=== PATIENT | male | born 1995 | race Caucasian/White ===

== ENCOUNTER 2018-01-26 09:48 | Emergency (ER) | payer BC ==
[~2018-01-26] VITALS: Ht 177.8 cm; Wt 81.8 kg
[2018-01-26 09:52] VITALS: BP 131/63; PULSE 90; TEMP 98.6
== END 2018-01-26 10:30 | disposition home or self-care (01) ==
LOC: COL.ER 09:48
DX: S93.401A Sprain of unspecified ligament of right ankle, initial encounter (principal); X50.1XXA Overexertion from prolonged static or awkward postures, initial encounter; Y93.63 Activity, rugby

== ENCOUNTER 2019-09-02 18:43 | Emergency (ER) | payer BC ==
[~2019-09-02] VITALS: Ht 177.8 cm; Wt 84.1 kg
[2019-09-02 18:51] VITALS: BP 168/106; TEMP 98.5
[2019-09-02 19:40] LABS: COLLECTION METHOD CLEAN CATCH
[2019-09-02 19:50] LABS: BASO % 0.5 % (0.0-2.0); EOS # 0.2 (0.0-0.7); GRAN # 5.2 (1.4-6.5); GRAN % 67.5 % (42.2-75.2); HEMATOCRIT 45.8 % (42.0-52.0); HEMOGLOBIN 15.5 g/dl (13.5-18.0); LYMPH # 1.6 (1.2-3.4); LYMPH % 20.8 % (20.0-51.0); MEAN CELL VOLUME 88 fl (80.0-100.0); MEAN CORPUSCULAR HEMOGLOBIN 30 pg (27.0-31.0); MEAN CORPUSCULAR HGB CONC 34 g/dl (33.0-37.0); MEAN PLATELET VOLUME 11.4 fl (7.4-10.4); MONO # 0.6 (0.1-0.6); MONO % 8.1 % (1.7-9.3); PLATELET COUNT 237 K/mm3 (130-400); RED BLOOD COUNT 5.22 M/mm3 (4.20-5.60)
[2019-09-02 19:53] LABS: ALBUMIN 4.7 gm/dL (3.5-5.0); BILIRUBIN,TOTAL 0.5 mg/dL (0.0-1.0); CALCIUM 9.6 mg/dL (8.4-10.2); CREATININE, serum 1.12 (0.66-1.25); MUCOUS Present /lpf; PH 5 (5-8); POTASSIUM 3.7 mmol/L (3.4-5.0); SQUAMOUS EPITHELIAL None Seen /hpf; TOTAL PROTEIN 7.4 gm/dL (6.4-8.2); URINE APPEARANCE Clear; URINE BACTERIA None Seen /hpf; URINE BILIRUBIN Negative (NEGATIVE); URINE BLOOD Negative (NEGATIVE); URINE COLOR Yellow; URINE GLUCOSE Negative (NEGATIVE); URINE KETONE Negative (NEGATIVE); URINE LEUKOCYTE ESTERASE Negative (NEGATIVE); URINE NITRATE Negative (NEGATIVE); URINE PROTEIN(semi-quant) Negative (NEGATIVE); URINE RBC None Seen /hpf; URINE UROBILINOGEN Negative (NEGATIVE)
[2019-09-02] MEDS ORDERED: FLEXERIL 1010 MG/TAB PO (22:46)
[2019-09-02] MEDS ORDERED: DULCOLAX STOOL100 MG PO (22:47)
[2019-09-02 22:55] VITALS: PULSE 62
== END 2019-09-02 22:13 | disposition home or self-care (01) ==
LOC: COL.ER 18:43
PROVIDERS: Emergency Medicine
DX: N50.812 Left testicular pain (principal); I10 Essential (primary) hypertension
CPT/HCPCS: J1885